=== PATIENT | male | born 1990 | race Caucasian/White ===

== ENCOUNTER 2017-12-31 20:02 | Inpatient (IN) | payer MEDICAID, OTHER ==
[2017-12-31] MEDS ORDERED: NS 0.9% 1000 ML* 1,000 ML IV ONE (21:20)
[2017-12-31 21:45] LABS: ABS Basophils 0 10^3/ul (0-0.2); ABS Eosinophils 0.1 10^3/ul (0-0.6); ABS Lymphocytes 1.3 10^3/ul (1.0-4.8); ABS Monocytes 0.5 10^3/ul (0-0.8); ABS Neutrophils 1.3 10^3/ul (1.5-7.7); ABS Nucleated RBC 0 10^3/ul; Eosinophil % 4.3 % (0-6); Hematocrit 43 % (42-52); Hemoglobin 15.3 g/dl (14.0-18.0); Lymphocyte % 41.1 % (25-47); Mean Corpuscular HGB Conc 36 g/dl (31-36); Mean Corpuscular Hemoglobin 31 pg (27-31); Mean Corpuscular Volume 85 fL (80-94); Mean Platelet Volume 9.2 um3 (7.4-10.4); Nucleated Red Blood Cells % 0; Platelet Count 161 10^3/ul (150-450); Red Blood Count 4.98 10^6/ul (4.0-5.4); Red Cell Distribution Width 13 % (10.5-15); White Blood Count 3.3 10^3/ul (3.5-10.8)
[2017-12-31 21:52] LABS: INR 0.98 (0.77-1.02)
--- NOTE | 2017-12-31 21:53 | RAD ---
INDICATION: Seizure COMPARISON: None TECHNIQUE: An AP portable view obtained at 2133 hours is submitted. FINDINGS: Bones/Soft Tissues: There are no acute bony findings. Cardiomediastinal: The cardiomediastinal silhouette is normal. Lungs: There are no infiltrates. Pleura: There are no pleural effusions. Other: None IMPRESSION: NORMAL CHEST.
[2017-12-31 21:56] LABS: EGFR Non-African American 97.8 (>60)
[2017-12-31 22:15] LABS: Urine Appearance Clear; Urine Blood Negative (Negative); Urine Color Yellow; Urine Ketones Negative (Negative); Urine Protein Negative (Negative); Urine Specific Gravity 1.031 (1.010-1.030); Urine Urobilinogen Negative (Negative)
[2017-12-31] MEDS ORDERED: NS 0.9% 1000 ML* 2,000 ML IV ONE (22:53)
[2017-12-31] MEDS ORDERED: Potassium Chlor TAB* 20 MEQ TAB.ER PO ONE (22:53)
[2017-12-31] MEDS ORDERED: Acetaminophen TAB* 325 MG PO PRN (23:20)
[2017-12-31] MEDS ORDERED: Ondansetron INJ* 2 MG/ML VIAL IV PRN (23:20)
--- NOTE | 2018-01-01 01:06 | ED ---
Alex Fitzpatrick Tecjoon scribbhanu for Larry Chauhan MD on 12/31/17 at 2125 . Dizziness - HPI Summary HPI Summary: This patient is a 27 year old male BIBA to [facility] accompanied by friends with a chief complaint of weakness since approx. 2 hours ago. Patient states that he was driving down the road, when vision went blurry, couldnt move arms, couldn t talk. Patient states that he pulled his car over the side of the road and called EMS. The pain is rated 0/10 in severity. Symptoms aggravated by nothing. Symptoms alleviated by nothing. The patient treated the sx with nothing [employer]PA[employer]. Patient additionally reports myalgia. Patient denies fever. Symptoms are resolved at time of arrival, with no slurred speech, facial droop, or weakness. - History Of Current Complaint Chief Complaint: EDWeakness Stated Complaint: ?TIA Time Seen by Provider: 12/31/17 21:03 Hx Obtained From: Patient Onset/Duration: Resolved Timing: Intermittent Episode Lasting Severity Currently: None Character: Weak Aggravating Factor(s): Nothing Alleviating Factor(s): Nothing Associated Signs And Symptoms: Positive: Negative - slurred speech, fever, facial droop,, Other: - myalgia, blurred vision - Allergies/Home Medications Allergies/Adverse Reactions: Allergies Allergy/AdvReac Type Severity Reaction Status Date / Time amoxicillin Allergy Swelling Verified 12/31/17 20:19 Penicillins Allergy Swelling Verified 12/31/17 20:19 Home Medications: Home Medications Omeprazole CAP* [Prilosec CAP* 20 MG] 40 mg PO DAILY 12/31/17 [History Confirmed 12/31/17] PMH/Surg Hx/FS Hx/Imm Hx Previously Healthy: Yes Endocrine/Hematology History: Denies: Hx Diabetes, Hx Thyroid Disease Cardiovascular History: Denies: Hx Hypertension, Hx Pacemaker/ICD Respiratory History: Denies: Hx Asthma, Hx Chronic Obstructive Pulmonary Disease (COPD) GI History: Denies: Hx Ulcer Sensory History: Denies: Hx Hearing Aid Psychiatric History: Denies: Hx Panic Disorder - Surgical History Surgery Procedure, Year, and Place: wisdom Infectious Disease History: No Infectious Disease History: Denies: Hx Hepatitis, Hx Human Immunodeficiency Virus (HIV), Traveled Outside the [place] in Last 30 Days - Family History Known Family History: Positive: Hypertension - Social History Occupation: Employed Full-time Lives: With Family Alcohol Use: None Hx Substance Use: No Substance Use Type: Reports: None Hx Tobacco Use: No Smoking Status (MU): Never Smoked Tobacco Review of Systems Negative: Fever Positive: Blurred Vision Positive: Myalgia Neurological: Negative - facial droop Positive: Weakness. Negative: Slurred Speech All Other Systems Reviewed And Are Negative: Yes Physical Exam - Summary Physical Exam Summary: VITAL SIGNS: Reviewed. GENERAL: Patient is a well-developed and nourished male who is lying comfortable in the stretcher. Patient is not in any acute respiratory distress. HEAD AND FACE: No signs of trauma. No ecchymosis, hematomas or skull depressions. No sinus tenderness. EYES: PERRLA, EOMI x 2, No injected conjunctiva, no nystagmus. EARS: Hearing grossly intact. Ear canals and tympanic membranes are within normal limits. MOUTH: Oropharynx within normal limits. NECK: Supple, trachea is midline, no adenopathy, no JVD, no carotid bruit, no c- spine tenderness, neck with full ROM. CHEST: Symmetric, no tenderness at palpation LUNGS: Clear to auscultation bilaterally. No wheezing or crackles. CVS: Regular rate and rhythm, S1 and S2 present, no murmurs or gallops appreciated. ABDOMEN: Soft, non-tender. No signs of distention. No rebound no guarding, and no masses palpated. Bowel sounds are normal. EXTREMITIES: FROM in all major joints, no edema, no cyanosis or clubbing. NEURO: Alert and oriented x 3. No acute neurological deficits. Speech is normal and follows commands. SKIN: Dry and warm Triage Information Reviewed: Yes Vital Signs On Initial Exam: Initial Vitals Temp Pulse Resp BP Pulse Ox 99.4 F 86 16 143/87 98 12/31/17 20:13 12/31/17 20:13 12/31/17 20:13 12/31/17 20:13 12/31/17 20:13 Vital Signs Reviewed: Yes Diagnostics - Vital Signs Vital Signs Temp Pulse Resp BP Pulse Ox 12/31/17 21:20 99.2 F 12/31/17 21:00 78 15 128/82 98 12/31/17 20:58 15 12/31/17 20:57 136/86 12/31/17 20:13 99.4 F 86 16 143/87 98 - Laboratory Result Diagrams: 12/31/17 21:28 12/31/17 20:39 Lab Statement: Any lab studies that have been ordered have been reviewed, and results considered in the medical decision making process. - Radiology CXR Xray Interpretation: No Acute Changes - CXR reveals, per radiologist, IMPRESSION : NORMAL CHEST. ED physician has reviewed this radiology report. Radiology Interpretation Completed By: Radiologist - CT CT Head CT Interpretation: No Acute Changes - CT Head reveals, per radiologist, IMPRESSION: Normal brain, No acute intracranial abnormality. ED physician has reviewed this radiology report CT Interpretation Completed By: Radiologist - EKG 2137 Cardiac Rate: NL EKG Rhythm: Sinus Rhythm - 74 BPM EKG Interpretation: Normal axis, normal interval, no ischemic changes. Dizzy Course/Dx - Course Course Of Treatment: This patient is a 27 year old male BIBA to [facility] accompanied by friends with a chief complaint of weakness since approx. 2 hours ago. Patient states that he was driving down the road, when vision went blurry, couldnt move arms, couldnt talk. Patient states that he pulled his car over the side of the road and called EMS. An EKG, taken 2137, reveals NSR (74 BPM), Normal axis, normal interval, no ischemic changes. CXR reveals, per radiologist , IMPRESSION: NORMAL CHEST. ED physician has reviewed this radiology report. CT Head reveals, per radiologist, IMPRESSION: Normal brain, No acute intracranial abnormality. ED physician has reviewed this radiology report. Bloodwork Obtained. Urinalysis Obtained. Test results with no significant abnormalities. In the ED course the patient was given Potassium Chloride. We discussed patient care with Nurse Practitioner and they agreed to admit the patient. Patient will be admitted with a dx of weakness. Patient is advised to follow up with PCP in 3 days. The patient is agreeable with this plan. - Diagnoses Provider Diagnoses: Weakness - Provider Notifications Discussed Care Of Patient With: Vlad Johnson - Nurse Practitioner Time Discussed With Above Provider: 23:15 - We discussed patient care with Nurse Practitioner and they agreed to admit the patient. Instructed by Provider To: Admit As Inpatient Discharge - Sign-Out/Discharge Documenting (check all that apply): Discharge - admitted - Discharge Plan Condition: Stable Disposition: ADMITTED TO [facility] Referrals: Khadar Dawkins MD [Primary Care Provider] - The documentation as recorded by the Alex lindsay Tecjoon accurately reflects the service I personally performed and the decisions made by me, Larry Chauhan MD.
--- NOTE | 2018-01-01 02:17 | HP ---
CC: Dr. Dawkins; Dr. Kilgore * HISTORY AND PHYSICAL: DATE OF ADMISSION: 12/31/17 PRIMARY CARE PROVIDER: Dr. Dawkins. ATTENDING PHYSICIAN WHILE IN THE HOSPITAL: Manuel Jim MD * (report dictated by Vlad Johnson NP) CHIEF COMPLAINT: Altered mental status. HISTORY OF PRESENT ILLNESS: Mr. Evans is a 27-year-old male patient. He was previously healthy. He comes in to our ER today. He says that basically since Wednesday, he has been having intermittent periods of just feeling run down, fatigued, aching all over, just muscles aching, joints aching. His says that he has been feeling warm at night. He noticed particularly at night that he feels kind of run down and weak. He says he just has not been really acting himself over the last week in the sense that he has been feeling just fatigued generally. He has been having days like Wednesday when he woke up, he was feeling kind of off he says, he is kind of vague in his descriptions. He took Aleve that made him feel better again, but then on Wednesday morning, he felt off again, took Aleve again. he felt off again, took Aleve. Everyday in the morning, he was just feeling fatigued with the exception of today, so he woke up, he finally had a good day, he felt well, he felt rested, he went to work, he had been going to work throughout the week and feeling well in the evenings, but just at nighttime feeling really run down, fatigued, kind of hot he said, but no diaphoresis, vomiting or diarrhea. He denied any URI symptoms. No rhinorrhea, no sore throat, no congestion. He denied having any abdominal pain. He basically was getting in his car to go home from work and he just felt like he was stuck in mud, he was moving real slow, he said he had trouble moving both of his arms. He said he felt profoundly weak, he tried grabbing his cell phone, he tried to call his father who called 911 because he was concerned, he was trying to get words out and trying to speak and he just felt like he could not say what he wanted to say. He pressed the panic button on his phone. 911 was summoned. He was able to finally summon his father and talk to him and his father says that when he was on the phone, his speech sounded pressured, rushed, he sounded like he was panicking. When EMS got there , he still felt weak in the upper extremities, he was still having trouble with his speech according to the patient. There was no facial drooping, no focal weakness at one side. He denied having any weakness to his lower extremities. There was concern when he got here by Dr. Chauhan because of the patient's report and we were asked to evaluate. The patient denied having any numbness around his face, no facial drooping. He did say that his vision got blurred, but he did not faint and there was no incontinence of urine or stool. He was evaluated in the ED and because of his altered mental status, we were asked to evaluate for admission. PAST MEDICAL HISTORY: He has had prepatellar bursitis on his right knee. PAST SURGICAL HISTORY: Denies with the exception of wisdom teeth. HOME MEDICATIONS: Include 40 mg daily. ALLERGIES TO MEDICATIONS: Include PENICILLIN. FAMILY HISTORY: His mother has high blood pressure, high cholesterol. Father had a history of stroke, Afib. SOCIAL HISTORY: He does not smoke, he does not drink. He denies recreational drugs. He owns his own business. He has 2 children. His surrogate decision maker is his . REVIEW OF SYSTEMS: There is no documented fever. He denies having any significant weight change. There is no double vision. He denies having any ear discharge. He denies having any rhinorrhea. He does admit to a sore throat tonight. There is no thyroid enlargement. No chest pain, no orthopnea or nocturnal dyspnea. He denies having any abdominal pain. There has been no nausea, vomiting, no dysuria, no frequency. No seizure. No loss of consciousness, no pruritus and no skin ulcerations. Review of 14 systems was completed, all others negative. PHYSICAL EXAMINATION GENERAL: At this time, Mr. Evans is a 27-year-old male patient, who is sitting in the ED stretcher. He appears to be well nourished and well developed. VITAL SIGNS: Blood pressure 117/77, pulse 76, respirations 16, O2 sat 96%, temperature 98.7. HEENT: Atraumatic, normocephalic. Eyes, EOMs intact. Sclerae anicteric and not pale. NECK: Supple. Throat: Oral mucosa appears to be moist. No oropharyngeal erythema. HEART: Sounds S1, S2. Regular rate and rhythm. No murmurs, rubs or gallops. LUNGS: Clear to auscultation bilaterally. No wheezes, rales, or rhonchi. ABDOMEN: Soft, flat, nontender. Bowel sounds were present. EXTREMITIES: Pulses were 2+ throughout, moving all 4 extremities with 5/5 strength. NEUROLOGIC: The patient is awake, he is alert, he is oriented x3. Finger to nose intact bilaterally. Heel to crawford intact bilaterally. Body Trimmer were equal. Tongue is midline. He had 5/5 strength. He speech appeared to be clear to me. Cranial nerves II through XII were intact. No gross focal deficits. SKIN: Grossly intact. LABORATORY DATA/DIAGNOSTIC STUDIES: WBC was 3.3, RBC 4.90, hemoglobin 15.3, hematocrit 43, platelet count of 161,000. INR 0.98, PTT 31.0. Blood gas: Carbon monoxide was negative. Sodium 139, potassium 3.9, chloride 104, bicarb 29, BUN 15, creatinine 1.94, glucose 109, lactic 1.3, calcium 9.0, total bili 0.4, mag 2.2. His AST was 20, ALT 26, alkaline phosphatase 68, CK 83, BNP of 7. TSH normal, albumin 4.1. Urine showed a high specific gravity of 1.031. Toxicology negative. Serology negative for mono and for flu. Brain CT, which the impression was read by our [facility] group showed a normal CT brain. Chest x-ray showed a normal chest x- ray. EKG obtained today showed normal sinus rhythm, rate of 74, no ST elevation or T wave inversions. Old medical records were reviewed. ASSESSMENT AND PLAN: Mr. Evans is a 27-year-old male patient coming in to the ED today with complaints of altered mental status. We were asked to evaluate for admission. He will be admitted under observation status for: 1. Altered mental status, etiology of this is unclear. The concern is possible panic attack; however, concerning with the word finding problems, I did touch base with Dr. Kilgore of Neurology. He will be evaluating the patient tomorrow. His symptoms are completely resolved now. I do get concerned with the leukopenia and the monocytosis. His mono screen was negative. I did send off an EBV. I am going to repeat the labs for leukopenia tomorrow, could have an underlying viral infection. There is no report of headache, photophobia or neck stiffness and on exam he certainly had no meningeal signs. possibly this could be encephalitis, although he is clear now, his mentation is better, arguing against this. I think observation state is appropriate. Will hydrate the patient. Repeat labs in the morning, have Neurology evaluate. I do not think we need any further imaging just at this point but unless Dr. Kilgore evaluates and feels that he will need further imaging, I will defer further recommendations, but we will monitor him. Should his symptoms evolve overnight or become worse, we will get in touch with Dr. Kilgore for more urgent evaluation. 2. DVT prophylaxis. He will be placed on SCDs. 3. Fluids, electrolytes and nutrition. I am replacing his potassium with p.o. potassium tonight. We will go ahead and put him on a regular diet. Continue to follow. 4. DVT prophylaxis. SCDs have been ordered. 5. Code status. Full code. TIME SPENT: Time spent on the admission was 60 minutes, greater than half the time was spent [id number] with the patient obtaining my history and physical, other half of the time was spent going over the plan of care with the patient and implementing the plan of care. I did discuss the plan of care with my attending, Dr. Jim; he is in agreement. VLAD JOHNSON, PATRIZIA [id number]/CPS #: [id number] DA
[2018-01-01 05:33] LABS: Hematocrit 38 % (42-52); Hemoglobin 13.5 g/dl (14.0-18.0); Mean Corpuscular HGB Conc 36 g/dl (31-36); Mean Corpuscular Hemoglobin 31 pg (27-31); Mean Corpuscular Volume 85 fL (80-94); Mean Platelet Volume 8.9 um3 (7.4-10.4); Platelet Count 139 10^3/ul (150-450); Red Blood Count 4.43 10^6/ul (4.0-5.4); Red Cell Distribution Width 13 % (10.5-15); White Blood Count 3.5 10^3/ul (3.5-10.8)
[2018-01-01 05:38] LABS: INR 0.98 (0.77-1.02)
[2018-01-01 05:49] LABS: EGFR Non-African American 100.2 (>60)
[2018-01-01 06:18] LABS: ABS Basophils 0 10^3/ul (0-0.2); ABS Eosinophils 0.2 10^3/ul (0-0.6); ABS Lymphocytes 1.7 10^3/ul (1.0-4.8); ABS Monocytes 0.5 10^3/ul (0-0.8); ABS Nucleated RBC 0 10^3/ul; Eosinophil % 5.6 % (0-6); Lymphocyte % 50.2 % (25-47); Nucleated Red Blood Cells % 0.2
[2018-01-01] MEDS: Omeprazole CAP* 20 MG PO SCH (07:02)
--- NOTE | 2018-01-01 07:03 | RAD ---
INDICATION: Confusion. COMPARISON: There are no prior studies available for comparison. TECHNIQUE: Contiguous axial sections of the brain were obtained from the skull base to the vertex without contrast. FINDINGS: The ventricles, cisterns and sulci are within normal limits. No significant focal abnormality or mass effect is seen. There is no evidence for hemorrhage. No significant focal osseous abnormality is seen. The visualized portion of the paranasal sinuses and mastoid air cells appear clear. IMPRESSION: NO EVIDENCE FOR ACUTE INTRACRANIAL ABNORMALITY.
--- NOTE | 2018-01-01 09:31 | PN ---
Subjective Date of Service: 01/01/18 Interval History: Ramon reports feeling better today. He denies any dizziness, blurred vision, headaches, chest pain or palpitations. Has been ambulatory, denies dizziness upon standing or walking. Feels perked up after IVF last night. Tolerating diet , trying to increase PO fluid intake. He has no complaints today. Neurological consult planned for this morning. Family History: Unchanged from Admission Social History: Unchanged from Admission Past Medical History: Unchanged from Admission Objective Active Medications: Acetaminophen (Tylenol Tab*) 650 mg PO Q4H PRN PRN Reason: FEVER/PAIN Omeprazole (Prilosec Cap*) 40 mg PO DAILY@0730 ADA Last Admin: 01/01/18 07:02 Dose: 40 mg Ondansetron HCl (Zofran Inj*) 4 mg IV Q6H PRN PRN Reason: NAUSEA Vital Signs - 8 hr 01/01/18 01/01/18 01/01/18 01:40 02:47 04:53 Temperature 97.4 F 97.8 F Pulse Rate 82 80 Respiratory 16 16 Rate Blood Pressure 113/72 94/53 (mmHg) O2 Sat by Pulse 99 99 98 Oximetry 01/01/18 01/01/18 07:49 08:00 Temperature 97.9 F Pulse Rate 75 Respiratory 12 12 Rate Blood Pressure 109/56 (mmHg) O2 Sat by Pulse 97 Oximetry Oxygen Devices in Use Now: None Appearance: Appears healthy and well-developed. Sitting up in his bed, eating breakfast, appears comfortable and in NAD. Eyes: No Scleral Icterus, PERRLA Ears/Nose/Mouth/Throat: Clear Oropharnyx, Mucous Membranes Moist Neck: NL Appearance and Movements; NL JVP, Trachea Midline, No Thyroid Enlargement, Masses Respiratory: Symmetrical Chest Expansion and Respiratory Effort, Clear to Auscultation Cardiovascular: NL Sounds; No Murmurs; No JVD, RRR Abdominal: NL Sounds; No Tenderness; No Distention, No Hepatosplenomegaly Lymphatic: No Cervical Adenopathy Extremities: No Edema Skin: No Rash or Ulcers Neurological: Alert and Oriented x 3, NL Muscle Strength and Tone Nutrition: Taking PO's Result Diagrams: 01/01/18 05:20 01/01/18 05:20 Diagnostic Imaging: Patient Name: RAMON KIRKLAND Medical Record#: [id number] Ordering Physician: Larry Chauhan MD Acct.#: [id number] : 1990 Age: 27 Sex: M Location: [address] [place] [address] MEDICAL/TELEMETRY Exam Date: 12/31/172122 ADM Status: ADM Bk Order Information: CT BRAIN WO Accession Number: [id number] CPT: 91785 INDICATION: Confusion. IMPRESSION: NO EVIDENCE FOR ACUTE INTRACRANIAL ABNORMALITY. Patient Name: RAMON KIRKLAND Medical Record#: [id number] Ordering Physician: Larry Chauhan MD Acct.#: [id number] : 1990 Age: 27 Sex: M Location: EMERGENCY DEPARTMENT Exam Date: 12/31/172120 ADM Status: REG ER Order Information: CHEST AP PORTABLE Accession Number: [id number] CPT: 91230 INDICATION: Seizure IMPRESSION: NORMAL CHEST. Assess/Plan/Problems-Billing Assessment: A 27 y/o male with admitted with altered mental status that has resolved since presentation, hx fatigue and malaise past few days with some URI symptoms, likely related to viral illness and dehydration. Had negative work-up, awaiting neurological consult today. - Patient Problems (1) Altered mental status, unspecified Current Visit: Yes Status: Acute Comment: Unclear etiology, likely panic attack, but can't r/o neurological cause. Discussed with Dr. Kilgore, who saw patient today for consultation. Patient experienced some sensory hyperstimulation on the left side during neurological exam, no motor deficits. Recommended a brain MRI W/WO contrast, as well as an EEG Patient was informed, has to stay inpatient until Wednesday for testing and close observation in Tele. (2) Viral illness Current Visit: Yes Comment: Experienced since last week, mostly upper respiratory congestion, resolving with symptomatic care. (3) Hypokalemia Current Visit: Yes Comment: Resolved with K supplement (4) GERD (gastroesophageal reflux disease) Current Visit: Yes Comment: Continue PPI (5) DVT prophylaxis Current Visit: Yes Status: Acute Code(s): EVS0129 - SNOMED Code(s): 801236093 Comment: SCD (6) Full code status Current Visit: Yes Status: Acute Code(s): Z78.9 - OTHER SPECIFIED HEALTH STATUS SNOMED Code(s): 409479494 Comment: He is a full code Status and Disposition: Convert to inpatient status since MRI can't be done over weekend. Discussed with patient and his family, who agreed.
--- NOTE | 2018-01-01 16:16 | CONS ---
CC: Dr. Khadar Dawkins. NEUROLOGY CONSULTATION REPORT: DATE OF CONSULT: 01/01/18 REQUESTING CLINICIAN: Vlad Johnson NP REASON FOR CONSULT: An episode of blurriness of vision and slowness in movements HISTORY OF PRESENT ILLNESS: The patient is a 27-year-old right-handed male who was in the usual state of health until yesterday when he went to car and started driving for a while when he suddenly felt unwell, and his vision became blurry. He became anxious, tried to pullover and was not sure what was happening to him. When he was trying to reach his pocket to grab his phone, he felt that he is not able to use his arms very well, like his motions were slow and had a hard time moving and that feeling escalated his anxiety. Eventually, he was able to call 911. When the ambulance came, he was on the phone with his father. His father states that the patient's speech sounded fine on the phone and there was no slurred speech or word finding problems that he noted, but he just seemed very anxious and even at some point crying because he was not sure what was going on. There was no report of lateralizing weakness of numbness. He denies any other associated symptoms such as no diplopia, no difficulty with the speech as mentioned, no particular localized weakness or numbness in the arm and legs or difficulty walking. Eventually, as the patient was coming to the hospital by the ambulance he gradually felt better and by the time he was evaluated in the hospital, he was almost back to his baseline. He reports in the past week starting from Wednesday he did not feel very well in the morning, some vague symptoms, so he had taken An Aleve on Wednesday and Wednesday morning. He was fine on Wednesday until evening when he had to take another Aleve because he was not feeling very well and he was again fine until this episode happened on Wednesday. The patient had not had any similar previous episodes in the past. No history of head trauma, encephalitis, meningitis or seizures in the past. PAST MEDICAL HISTORY: 1. He has history of patellar bursitis in the right knee 2. History of migraine type headaches when he was a child. Now he gets headaches frequently, they are not as severe mostly in the bifrontal head region and can be associated with photophobia. PAST SURGICAL HISTORY: Not significant other than extraction of the wisdom teeth. MEDICATIONS: He takes omeprazole 40 mg p.o. daily. FAMILY HISTORY: His father had a history of stroke, it seems like it was related to an ASD, which was repaired. Paternal aunt had history of seizure probably started in the age 30s, manifesting as staring episodes. Per patient' s father, patient's aunt subsequently was on antiepileptic medications and her seizures were controlled and then sounds like she committed suicide later in life. There is history of migraine in maternal grandmother. SOCIAL HISTORY: The patient does not smoke or drink. He does not use recreational drug. 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 REVIEW OF SYSTEMS: A complete review of system was reviewed and other than what mentioned above is negative. PHYSICAL EXAM: Temperature 97.9, blood pressure 109/56, respiratory rate 12, pulse is 75, O2 sat 97 on room air. Patient seems comfortable, in no acute distress, appears his stated age. Heart has regular rate and rhythm. Abdomen is soft and nontender. Pulses equal in both arms and legs. Neurological Exam: The patient is awake, alert and oriented x3. Able to do serial 7's very fast. Pupils are symmetric and reactive to light. Extraocular movements are intact. On funduscopy, the optic discs are sharp with no papilledema observed. Visual rodriguez are intact by confrontation. Face is symmetric. V1 to V3 he reports increased sensation to light touch and pinprick especially in the V1 area and less so in the V2 on the left side. V3 seems equal bilaterally. Tongue is in midline. Palate elevates upward. On motor exam, there is no pronator drift. Strength is 5/5 throughout. Rapid alternative movements are intact and finger-to -nose is intact bilaterally. On sensory exam, there is report of increased sensation to light touch, pinprick and temperature on the left side in the arms and legs. There is also report of sensing the vibration with tuning fork on the left side at least for 15 to 20 seconds after discontinuation of the vibration. Proprioception is intact bilaterally. Finger to nose and heel-to- crawford is intact bilaterally. JOHN intact bilaterally, but slightly slower in the left hand compared to the right (he is right handed)t. Deep tendon reflexes are 1+ in the knees and the ankles and are symmetric and the same in the upper extremities. The Babinski seems equivocal on the right and probably is mildly present (upgoing) on the left side. DIAGNOSTIC STUDIES/LAB DATA: CT of the head without contrast shows no evidence of intracranial abnormalities. On the labs, WBC was 3.3 when he presented to the hospital lat night and is 3.5 today. The diff shows 27.6% neutrophils today, 50.2% lymphocytes and 15.7% monocytes. Platelets are 139. Sodium 139, potassium 3.7 chloride 107, anion gap is 5, BUN 14, creatinine 0.92, glucose 108, calcium 8, magnesium 2.2, AST 20 , ALT 26. INR is 0.98. U-tox is negative. Screen for infectious mononucleosis is negative. ASSESSMENT AND PLAN: The patient is a 27-year-old male with no significant past medical history other than headaches presents with an episode of sudden onset of blurred vision, difficulty with performing tasks such as using his hands. He does not seem to have significant impaired consciousness or confusion during the episode. However, what is concerning on the exam now is report of hyperesthesia on the left side: he reports increased sensation to the all modalities sensory exam on the next side including V1 and V2 on the left side. He is not sure if his right side is normal or the left side; however, this can be interpreted as decrease of sensation on the right side with the exception of the vibration that he reports ongoing vibration on the left side of the body about 15-20 seconds after the tuning forks has stopped and on repeated exam this is a consistent finding. Now if the right side sensory exam be considered abnormal, then putting the present Babinski sign on the left side can be confusing in terms of localization. He has a questionable Babinski on the left side as well. Another confusing part of this case is that the lateralizing findings on the exam do not quite fit the non-lateralizing report of yesterday' s episode. With the above findings, it is important to rule out a lesion in the GLASS SCIENCE ENGINEER the cortical area close to the sensorymotor cortex in the right hemisphere with an MRI with or without contrast. Anther finding in the patient's labs that does not have a good explanation is increased monocytes diff with a relative leukopenia in his CBC; his WBC was 3.3 yesterday, but improved to 3.5 today; diff still shows increased monocytes. Another differential in etiology of patient's episode yesterday was a complex partial seizure, although there was no clear impaired consciousness. Would be reasonable to obtain an EEG as well. The above were discussed with the patient and his family present at the bedside (, and parents). Time spent at beside at least 60 minutes. [id number]/[facility] #: [id number] DA
[2018-01-02] MEDS: Omeprazole CAP* 20 MG PO SCH (07:37)
--- NOTE | 2018-01-02 08:05 | PN ---
Subjective Date of Service: 01/02/18 Interval History: Patient was seen and examined at bedside. Reports feeling well, denies any complaints. Has been walking, eating and using the bathroom. Denies dizziness, headaches, seizures, chest pain or SOB. Slept well last night, would like to go home as soon as possible. Family History: Unchanged from Admission Social History: Unchanged from Admission Past Medical History: Unchanged from Admission Objective Active Medications: Acetaminophen (Tylenol Tab*) 650 mg PO Q4H PRN PRN Reason: FEVER/PAIN Omeprazole (Prilosec Cap*) 40 mg PO DAILY@0730 [facility] Last Admin: 01/02/18 07:37 Dose: 40 mg Ondansetron HCl (Zofran Inj*) 4 mg IV Q6H PRN PRN Reason: NAUSEA Vital Signs - 8 hr 01/02/18 01/02/18 01/02/18 03:37 04:18 07:39 Temperature 97.6 F 97.5 F Pulse Rate 61 66 Respiratory 16 16 Rate Blood Pressure 111/55 105/63 (mmHg) O2 Sat by Pulse 98 97 99 Oximetry 01/02/18 07:56 Temperature Pulse Rate Respiratory 16 Rate Blood Pressure (mmHg) O2 Sat by Pulse Oximetry Oxygen Devices in Use Now: None Appearance: Appears healthy and well developed, laying on his bed, comfortable and in NAD. Ears/Nose/Mouth/Throat: Mucous Membranes Moist Neck: NL Appearance and Movements; NL JVP, Trachea Midline Respiratory: Symmetrical Chest Expansion and Respiratory Effort, Clear to Auscultation Cardiovascular: NL Sounds; No Murmurs; No JVD, RRR Abdominal: NL Sounds; No Tenderness; No Distention, No Hepatosplenomegaly Lymphatic: No Cervical Adenopathy Extremities: No Edema Skin: No Rash or Ulcers Neurological: Alert and Oriented x 3, NL Muscle Strength and Tone Nutrition: Taking PO's Result Diagrams: 01/01/18 05:20 01/01/18 05:20 Assess/Plan/Problems-Billing Assessment: A 27 y/o male with admitted with altered mental status that has resolved since presentation, hx fatigue and malaise past few days with some URI symptoms, likely related to viral illness and dehydration. Had negative work-up. Neurological consult suggested abnormal sensory exam, awaiting MRI and EEG. - Patient Problems (1) Altered mental status, unspecified Current Visit: Yes Comment: Unclear etiology, likely panic attack, but can't r /o neurological cause. Discussed with Dr. Kilgore, who saw patient today for consultation. Patient experienced some sensory hyperstimulation on the left side during neurological exam, no motor deficits. Recommended a brain MRI W/WO contrast, as well as an EEG Patient was informed, has to stay inpatient until Wednesday for testing and close observation in Tele. (2) Viral illness Current Visit: Yes Comment: Experienced since last week, mostly upper respiratory congestion, resolving with symptomatic care. (3) Hypokalemia Current Visit: Yes Comment: Resolved with K supplement (4) GERD (gastroesophageal reflux disease) Current Visit: Yes Comment: Continue PPI (5) DVT prophylaxis Current Visit: Yes Status: Acute Code(s): SVV4035 - SNOMED Code(s): 773475417 Comment: SCD, ambulate (6) Full code status Current Visit: Yes Status: Acute Code(s): Z78.9 - OTHER SPECIFIED HEALTH STATUS SNOMED Code(s): 085490619 Comment: He is a full code Status and Disposition: Ramon is clinically stable with no further neurological complaints since presentation. Await findings of MRI and EEG to determine d/c plans.
[2018-01-02] MEDS ORDERED: Gadoteridol* (CONTRAST) 279.3 MG/ML 10 ML IV ONE (14:35)
[2018-01-02] MEDS ORDERED: Gadoteridol* (CONTRAST) 279.3 MG/ML 10 ML IV SCH (15:00)
--- NOTE | 2018-01-02 20:43 | RAD ---
INDICATION: 2 days earlier the patient experienced blurred vision and "lost ability to talk and ability to control arms" that lasted 30 minutes COMPARISON: Noncontrast CT of the brain dated December 31, 2017 TECHNIQUE: Sagittal T1, axial T1, T2, susceptibility, FLAIR and diffusion-weighted images were obtained. In addition, axial, sagittal and coronal T1-weighted images were obtained following intravenous injection of 20 mL of ProHance contrast. FINDINGS: The ventricles, cisterns and sulci appear to be within normal limits. The left cerebellum there is an obliquely oriented faintly T2 bright focus measuring 1.5 cm in length (series 8 image 12) that corresponds to increased signal on the diffusion-weighted imaging. This is not seen on the T1-weighted imaging and does not exhibit any abnormal enhancement on the postcontrast images. Otherwise the bundy-white matter differentiation is well-maintained. There are no suspicious foci enhancing or otherwise. No other significant focal abnormality or mass effect is seen. No areas of restricted diffusion are present. There is no evidence for infarct or hemorrhage. There is an inspissated secretion in the lateral aspect of the left maxillary sinus. IMPRESSION: 1. The left cerebellum there is a nonspecific T2 bright focus measuring 1.5 cm in length that is not seen on the T1-weighted imaging and does not exhibit any contrast enhancement. A benign etiology is favored. 2. Otherwise no acute intracranial abnormality, enhancing or otherwise.
--- NOTE | 2018-01-03 07:59 | PN ---
Subjective Date of Service: 01/03/18 Interval History: Doing better over the weekend. No further episodes. He denies any general aches or pains. Headaches are better. No seizure like activity. No neck stiffness, no N/V. Eating well. Ambulating well. Denies h/o seizures, maternal aunt with seizures, no h/o head trauma, no h/o meningitis, no complications. Continues to feel more sensation on the left vs. right. MRI Brain: Left cerebellar hyperintensity, likely benign. I reviewed the films. Otherwise , no acute issues. Family History: Unchanged from Admission Social History: Unchanged from Admission Past Medical History: Unchanged from Admission Objective Active Medications: Acetaminophen (Tylenol Tab*) 650 mg PO Q4H PRN PRN Reason: FEVER/PAIN Gadoteridol (Prohance* (Contrast)) 20 ml IV ONCE [facility] Stop: 01/04/18 14:34 Omeprazole (Prilosec Cap*) 40 mg PO DAILY@0730 [facility] Last Admin: 01/02/18 07:37 Dose: 40 mg Ondansetron HCl (Zofran Inj*) 4 mg IV Q6H PRN PRN Reason: NAUSEA Vital Signs 01/02/18 01/02/18 01/02/18 07:56 11:13 15:20 Temperature 97.2 F 98.3 F Pulse Rate 66 73 Respiratory 16 16 16 Rate Blood Pressure 122/68 119/65 (mmHg) O2 Sat by Pulse 98 98 Oximetry 01/02/18 01/02/18 01/02/18 19:23 20:00 23:12 Temperature 97.9 F 98.6 F Pulse Rate 69 62 Respiratory 20 20 20 Rate Blood Pressure 124/64 116/60 (mmHg) O2 Sat by Pulse 98 98 Oximetry 01/03/18 03:53 Temperature 98.8 F Pulse Rate 73 Respiratory 20 Rate Blood Pressure 124/69 (mmHg) O2 Sat by Pulse 98 Oximetry Oxygen Devices in Use Now: None Neurology Exam: General: Awake, Alert, Oriented x3 HEENT: Normocephalic/atraumatic, sclera anicteric, mucous membranes moist Neck: Supple Chest: Clear to auscultation bilaterally Cardiovascular: Regular rate and rhythm without murmurs, rubs, gallops Abdomen: Soft, nontender/nondistended Extremities: No clubbing, cyanosis, or edema Neurological Findings: Awake, Alert, Oriented x3 Speech: fluent without dysarthria, repetition intact Cranial Nerve: PEERL, EOM intact, VFF, no nystagmus, face symmetric bilaterally , facial sensation intact, hearing intact to finger rub bilaterally, palate elevates symmetrically, tongue midline, SCM and Trapezius 5/5 Motor: 5/5 throughout, proximal and distal extremities x4 tone/bulk normal Sensation: intact to LT/PP bilaterally upper and lower extremities with some hyperesthesia on the left to LT/PP arm and leg, unchanged per patient Deep Tendon Reflex: 1+ symmetric in the upper/lower extremities, Babinski - equivocal Finger to nose, rapid alternating movements intact without tremor, no dysdiadochokinesia Gait: intact with good arm swing and stride. no sway with eyes open/closed Result Diagrams: 01/01/18 05:20 01/01/18 05:20 Diagnostic Imaging: Patient Name: SERA KIRKLAND Medical Record#: [id number] Ordering Physician: Larry Chauhan MD Acct.#: [id number] : 1990 Age: 27 Sex: M Location: [address] [place] [address]/[facility]LEMET[place] Exam Date: 12/31/172122 ADM Status: ADM Bk Order Information: CT BRAIN WO Accession Number: [id number] CPT: 12904 INDICATION: Confusion. IMPRESSION: NO EVIDENCE FOR ACUTE INTRACRANIAL ABNORMALITY. Patient Name: SERA KIRKLAND Medical Record#: [id number] Ordering Physician: Larry Chauhan MD Acct.#: [id number] : 1990 Age: 27 Sex: M Location: EMERGENCY DEPARTMENT Exam Date: 12/31/172120 ADM Status: REG ER Order Information: CHEST AP PORTABLE Accession Number: [id number] CPT: 69279 INDICATION: Seizure IMPRESSION: NORMAL CHEST. Assessment/Plan Assessment: 27 y/o with a history of headaches, recent malaise, fatigue, diffuse aches last week. Wednesday had an episode of possible confusion but difficulty speaking and moving. Resolved and none since then. Feeling better. Unclear sensory changes : hyperesthesia on the left vs. sensory loss on the right. MRI: No acute issues. Cerebellar hyperintensity would not explain his symptoms , likely benign and chronic. 1. EEG today. Suspicion for seizures is low but as I explained to the patient , there are only certain things that could present like he did and seizures could cause similar symptoms, although my suspicion is low. 2. MRI: hyperintensity is likely chronic, benign. Would not explain symptoms. No strong evidence of MS. 3. No strong evidence for an encephalitis or meningitis: at this point LP would be low yield. He is clinically much better 4. Leukopenia resolved. Mild thrombocytopenia. Supports diagnosis of underlying viral infection. His symptoms could be explained, at least in part by viral illness. 5. Anxiety, questionable panic attack, diagnosis of exclusion 6. Has had episodes of low blood pressure which could, in the right setting, cause transient symptoms. Unlikely metabolic in nature. No evidence of hypoglycemia. 7. Continue to monitor. If his studies are negative, now that he is feeling better, he will likely go home later today. Will need follow up with me in 1 month. We can repeat MRI in 6-12 months assuming no new symptoms.
[2018-01-03] MEDS: Omeprazole CAP* 20 MG PO SCH (08:22)
--- NOTE | 2018-01-03 08:41 | PN ---
Subjective Date of Service: 01/03/18 Interval History: Mr. Evans reports that he is doing well and is eager for discharge. Family History: Unchanged from Admission Social History: Unchanged from Admission Past Medical History: Unchanged from Admission Objective Active Medications: Acetaminophen (Tylenol Tab*) 650 mg PO Q4H PRN Gadoteridol (Prohance* (Contrast)) 20 ml IV ONCE [facility] Omeprazole (Prilosec Cap*) 40 mg PO DAILY@0730 [facility] Ondansetron HCl (Zofran Inj*) 4 mg IV Q6H PRN Vital Signs: Temp Pulse Resp BP Pulse Ox 98.8 F 73 20 124/69 98 01/03/18 03:53 01/03/18 03:53 01/03/18 03:53 01/03/18 03:53 01/03/18 08:03 Oxygen Devices in Use Now: None Appearance: Male sitting up in bed in NAD Eyes: No Scleral Icterus Ears/Nose/Mouth/Throat: Mucous Membranes Moist Neck: Trachea Midline Respiratory: Symmetrical Chest Expansion and Respiratory Effort, Clear to Auscultation Cardiovascular: NL Sounds; No Murmurs; No JVD, No Edema Abdominal: NL Sounds; No Tenderness; No Distention Lymphatic: No Cervical Adenopathy Extremities: No Edema Skin: No Rash or Ulcers Neurological: Alert and Oriented x 3, NL Muscle Strength and Tone Nutrition: Taking PO's Result Diagrams: 01/01/18 05:20 01/01/18 05:20 Assess/Plan/Problems-Billing Assessment: Mr. Evans is a 27 y/o with a history of headaches, recent malaise, fatigue, diffuse aches last week. Wednesday had an episode of possible confusion but difficulty speaking and moving. Resolved and none since then. Feeling better. Unclear sensory changes: hyperesthesia on the left vs. sensory loss on the right. - Patient Problems (1) Altered mental status, unspecified Comment: Unclear etiology, likely viral illness compounded by anxiety. Discussed with Dr. Garibay, plan for outpatient follow up. MRI findings felt to be incidental. EEG negative. (2) Viral illness Comment: Experienced since last week, mostly upper respiratory congestion, resolving with symptomatic care. (3) DVT prophylaxis Comment: SCD, ambulate (4) Full code status Comment: He is a full code Status and Disposition: Discharge to home.
[2018-01-03 12:38] VITALS: BP 116/74
--- NOTE | 2018-01-04 00:49 | EEG ---
ELECTROENCEPHALOGRAPHY: DATE OF STUDY: 01/03/18 - ROOM #[id number] PATIENT OF: Dr. Rivera and . * CLINICAL PROBLEM: This is a 27-year-old man being evaluated for slowness of movement and blurriness while driving. This study was done to evaluate for possible seizures. MEDICATIONS: Include: 1. Acetaminophen. 2. Omeprazole. 3. Ondansetron. REPORT: With the patient awake, background cerebral activity consists of moderate amplitude posterior dominant 8 Hz rhythm, which attenuates with eye opening and reappears with eye closure. The patient never falls asleep. No activation procedures were performed. No epileptiform potentials, focal abnormalities or major asymmetries of background are noted. CLINICAL IMPRESSION: This awake EEG is within normal limits. [id number]/[facility] #: [id number] [facility]
--- NOTE | 2018-01-04 03:16 | DS ---
CC: Dr. Dawkins * DISCHARGE SUMMARY: DATE OF ADMISSION: 12/31/17 DATE OF DISCHARGE: 01/03/18 ATTENDING PHYSICIAN: Herrera Hung MD * (dictation provided by Yolanda Nagel NP) PRIMARY DIAGNOSES: 1. Episode of confusion, slurred speech, and bilateral upper extremity weakness. 2. Recent viral illness. SECONDARY DIAGNOSES: None. MEDICATIONS AT THE TIME OF DISCHARGE: Omeprazole 20 mg p.o. daily. HOSPITAL COURSE: Mr. Evans is a 27-year-old male with no significant past medical history who presented to the emergency room on 12/31/17 with concern for confusion, slurred speech, and difficulty moving his upper extremities. Please see the dictated H and P from Vlad Johnson NP, for complete details. In brief, the patient had reported that since the Wednesday prior to admission, he had been having intermittent periods of fatigue and achiness with possible fever. This seemed to resolve on the day of admission when he then developed trouble moving his upper extremities bilaterally and difficulty speaking. In the emergency room, the patient had labs, which showed mild leukopenia at 3.3 and a mild hypokalemia also 3.3. He had no evidence of infection. Normal chest x-ray and urinalysis. CT brain showed "no evidence for acute intracranial abnormality." Mr. Evans was seen in consultation by Dr. Kilgore from Neurology on 01/01/18. I refer you to that note for complete details. In brief, he noted he recommended an MRI to rule out a VOICE PATHOLOGIST lesion. Mr. Evans went on for an MRI of the brain on 01/02/18, which showed the following: "In the left cerebellum, there is a nonspecific T2 bright focus measuring 1.5 cm in length that is not seen on a T1 weighted imaging and does not exhibit any contrast enhancement, a benign etiology is favored, otherwise no acute intracranial abnormality enhancing or otherwise." The patient was seen again today in consultation by Dr. Garibay from Neurology. He reviewed the MRI and felt that this was likely an incidental finding and that the patient's symptoms were not concerning for multiple sclerosis. He did recommend, however, that the patient have an EEG to rule out a seizure, which was completed today and was normal. Mr. Evans's symptoms have completely resolved. Dr. Garibay suspects that perhaps this was all related to a viral illness and possibly compounded by anxiety. The plan is for him to follow up closely with Dr. Garibay in the outpatient setting. The patient will be calling for an appointment. DISPOSITION: To home. DIET: Regular. ACTIVITY: As tolerated. FOLLOWUP PLANS: 1. Please follow up with Dr. Garibay as outpatient in the next 4 to 6 weeks. 2. Please follow up with Dr. Dawkins in the next 1 to 2 weeks. TIME SPENT: Approximately 60 minutes were spent in discharge of this patient, more than half the time was spent with the patient at the bedside reviewing the events leading up to this hospitalization and during this hospitalization, performing the physical examination, and reviewing my plan of care. YOLANDA NAGEL NP [id number]/[facility] #: [id number] DA
== END 2018-01-03 14:17 | disposition home or self-care (01) | DRG 880 ==
LOC: ED 20:02 → MEDTELE 23:08 → OBSVTOIN 01-01 15:30
PROVIDERS: ADMIT Internal Medicine; ATTEND Internal Medicine
PROC: 4A10X4Z Monitoring of Central Nervous Electrical Activity, External Approach (ICD-10-PCS; principal; 2018-01-03)
DX: F41.9 Anxiety disorder, unspecified (principal); B34.9 Viral infection, unspecified; D72.819 Decreased white blood cell count, unspecified; E87.6 Hypokalemia; K21.9 Gastro-esophageal reflux disease without esophagitis; D69.6 Thrombocytopenia, unspecified; I95.9 Hypotension, unspecified; E86.0 Dehydration; Z88.0 Allergy status to penicillin; Z82.3 Family history of stroke; Z82.49 Family history of ischemic heart disease and other diseases of the circulatory system; Z83.49 Family history of other endocrine, nutritional and metabolic diseases; Z88.1 Allergy status to other antibiotic agents; Z86.69 Personal history of other diseases of the nervous system and sense organs
CPT/HCPCS: 36415; 70450; 70553; 71045; 80048; 80053; 80307; 81003; 82375; 82550; 83605; 83735; 83880; 84443; 85025; 85610; 85730; 86308; 86664; 86665; 87502; 93005; 94760; 95816; 99284; A9270-GY; A9579

== ENCOUNTER 2018-05-30 18:10 | Emergency (ER) | payer OTHER ==
[2018-05-30 18:25] VITALS: BP 104/47
[2018-05-30] MEDS ORDERED: Ondansetron INJ* 2 MG/ML VIAL IV ONE (18:34)
[2018-05-30] MEDS ORDERED: NS 0.9% 1000 ML* 1,000 ML BOLUS ONE (18:34)
--- NOTE | 2018-05-30 18:40 | UC ---
Abdominal Pain Male HPI - HPI Summary HPI Summary: The patient is a 28-year-old male who returned from a trip to [place] on . Before his return he started having diarrhea. Since his return he has had 3-5 episodes of diarrhea day as well as crampy abdominal pain. For the past 3 days she has had fever and chills. He is also had a headache. Today he started developing some nausea and has had some vomiting. He has lost over 10 pounds since his trip. - History of Current Complaint Chief Complaint: UCGI Stated Complaint: ABDOMINAL COMPLAINT Time Seen by Provider: 05/30/18 18:27 Hx Obtained From: Patient Onset/Duration: Gradual Onset, Lasting Days Timing: Constant Severity Initially: Mild Severity Currently: Moderate Pain Intensity: 6 Pain Scale Used: 0-10 Numeric Location: Diffuse Character: Cramping Alleviating Factor(s): Nothing Associated Signs And Symptoms: Positive: Fever, Decreased Appetite, Nausea, Vomiting, Diarrhea - Allergies/Home Medications Allergies/Adverse Reactions: Allergies Allergy/AdvReac Type Severity Reaction Status Date / Time amoxicillin Allergy Swelling Verified 05/30/18 18:25 Penicillins Allergy Swelling Verified 05/30/18 18:25 Home Medications: Home Medications Ibuprofen TAB* [Advil TAB*] 400 mg PO PRN 05/30/18 [History] PMH/Surg Hx/FS Hx/Imm Hx Previously Healthy: Yes - Surgical History Surgical History: Yes Surgery Procedure, Year, and Place: wisdom teeth - Family History Known Family History: Positive: Hypertension - Social History Alcohol Use: None Substance Use Type: None Smoking Status (MU): Never Smoked Tobacco - Immunization History Most Recent Influenza Vaccination: 2013 Most Recent Tetanus Shot: unknown Most Recent Pneumonia Vaccination: n/a Review of Systems Constitutional: Fever, Chills Skin: Negative Eyes: Negative ENT: Negative Respiratory: Negative Cardiovascular: Negative Gastrointestinal: Abdominal Pain, Vomiting, Diarrhea, Nausea Genitourinary: Negative Motor: Negative Neurovascular: Negative Musculoskeletal: Negative Neurological: Headache Psychological: Negative Is Patient Immunocompromised?: No All Other Systems Reviewed And Are Negative: Yes Physical Exam Triage Information Reviewed: Yes Appearance: Well-Appearing, No Pain Distress, Well-Nourished Vital Signs: Initial Vital Signs Temp 101.5 F 05/30/18 18:20 Pulse 117 05/30/18 18:20 Resp 16 09/03/18 18:20 BP 104/47 05/30/18 18:20 Pulse Ox 100 05/30/18 18:20 Vital Signs Reviewed: Yes Eyes: Positive: Conjunctiva Clear ENT: Positive: Hearing grossly normal. Negative: Nasal congestion, Nasal drainage, Tonsillar swelling, Tonsillar exudate, Muffled voice, Dental tenderness, Sinus tenderness Dental: Negative: Dental Fracture @, Abscess @ Neck: Positive: Supple, Nontender Respiratory: Positive: Lungs clear, Normal breath sounds, No respiratory distress, No accessory muscle use Cardiovascular: Positive: RRR, No Murmur, Tachycardia Abdomen Description: Negative: Nontender - diffuse mild tenderness Bowel Sounds: Positive: Present Musculoskeletal: Positive: ROM Intact, No Edema Neurological Exam: Normal Psychological Exam: Normal Skin Exam: Normal Diagnostics - Laboratory Diagnostic Studies Completed/Ordered: influenza (-) Re-Evaluation - Re-Evaluation First Eval Re-Evaluation Time: 19:21 Change: Improved - much better/abd not tender Abd Pain Male Course/Dx - Differential Dx/Clinical Impression Provider Diagnoses: traveler's diarrhea Discharge - Sign-Out/Discharge Documenting (check all that apply): Patient Departure All imaging exams completed and their final reports reviewed: No Studies - Discharge Plan Condition: Stable Disposition: HOME Patient Education Materials: Traveler's Diarrhea (ED) Referrals: Khadar Dawkins MD [Primary Care Provider] - 4 Days (if not better) Additional Instructions: obtain stool specimen start cipro once stool obtained - Billing Disposition and Condition Condition: STABLE Disposition: Home
[2018-05-30] MEDS ORDERED: Ondansetron ODT TAB* 4 MG PO ONE (19:25)
[2018-05-30] MEDS ORDERED: Acetaminophen TAB* 325 MG PO ONE (19:41)
== END 2018-05-30 20:10 | disposition home or self-care (01) ==
LOC: UCEAST 18:10
DX: R19.7 Diarrhea, unspecified (principal); Z88.0 Allergy status to penicillin
CPT/HCPCS: 87045; 87046; 87177; 87209; 87328; 87329; 87899; 96360; 96372; 96374; 99212; A9270-GY; G0463; J2405

== ENCOUNTER 2019-03-06 20:54 | Emergency (ER) | payer SELFPAY ==
[2019-03-06 21:13] VITALS: BP 111/68
[2019-03-06] MEDS ORDERED: Sulfamethox/Trimethoprim DS 800/160* TAB PO ONE (21:49)
--- NOTE | 2019-03-06 21:54 | UC ---
Skin Complaint HPI - History of Current Complaint Chief Complaint: UCSkin Time Seen by Provider: 03/06/19 21:36 Stated Complaint: LT LEG SKIN COMPLAINT Hx Obtained From: Patient Pain Intensity: 3 - Allergy/Home Medications Allergies/Adverse Reactions: Allergies Allergy/AdvReac Type Severity Reaction Status Date / Time amoxicillin Allergy Swelling Verified 03/06/19 21:05 Penicillins Allergy Swelling Verified 03/06/19 21:05 PMH/Surg Hx/FS Hx/Imm Hx - Surgical History Surgical History: Yes Surgery Procedure, Year, and Place: wisdom teeth - Family History Known Family History: Positive: Hypertension - Social History Alcohol Use: None Substance Use Type: None Smoking Status (MU): Never Smoked Tobacco - Immunization History Most Recent Influenza Vaccination: 2013 Most Recent Tetanus Shot: unknown Most Recent Pneumonia Vaccination: n/a Physical Exam Vital Signs: Initial Vital Signs Temp 98.6 F 03/06/19 21:06 Pulse 85 03/06/19 21:06 Resp 18 03/06/19 21:06 BP 111/68 03/06/19 21:06 Pulse Ox 98 03/06/19 21:06 Course/Dx - Differential Diagnoses - Skin Complaint Differential Diagnoses: Abscess, Cellulitis, Local Allergic Reaction, MRSA, Urticaria - Diagnoses Provider Diagnosis: Cellulitis of left lower leg Discharge - Sign-Out/Discharge Documenting (check all that apply): Patient Departure - D/C home All imaging exams completed and their final reports reviewed: No Studies - Discharge Plan Condition: Stable Disposition: HOME Prescriptions: Sulfamethox/Trimethoprim DS* [Bactrim DS 800/160 TAB*] 1 tab PO BID #19 tab Patient Education Materials: Cellulitis (ED) Referrals: Khadar Dawkins MD [Primary Care Provider] - 2 Days Additional Instructions: 1-Please take Bactrim PO as directed full course of Antibiotic. first dose given tonight. Take yogurt w/ probiotics or Culturelle PO to protect your GI system. 2- If redness and swelling doubles in size beyond what was demarcated after 48 hrs of taking antibiotic and fever develops please go to the ER immediately. 3-Avoid standing for long periods of time or flexing your foot, keep it elevated and keep wound clean and dry. Apply Bacitrain oint as directed 4-Please F/u with your PCP in 3 days if symptoms are not improving for further evaluation and treatment. - Billing Disposition and Condition Condition: STABLE Disposition: Home
== END 2019-03-06 22:02 | disposition home or self-care (01) ==
LOC: UCCORT 20:54
DX: L03.116 Cellulitis of left lower limb (principal); Z88.0 Allergy status to penicillin
CPT/HCPCS: 99212; A9270-GY; G0463

== ENCOUNTER 2020-01-18 13:34 | Emergency (ER) | payer SELFPAY ==
--- NOTE | 2020-01-18 13:43 | UC ---
Lower Extremity/Ankle HPI - HPI Summary HPI Summary: 30 yo male presents with foot injury. He tells me that just BACK HAND he was walking in his house in [place] and stepped on a screw that penetrated his sole and punctured the web spacing of his 1st and 2nd toes. Bandaged the area and came directly to . States last tetanus was within the last 2-3 years. States screw was removed in one intact piece - History of Current Complaint Stated Complaint: FOOT INJURY Time Seen by Provider: 01/18/20 13:43 Hx Obtained From: Patient Onset/Duration: Sudden Onset Severity Initially: Moderate Severity Currently: Moderate Pain Intensity: 5 Pain Scale Used: 0-10 Numeric Able to Bear Weight: Yes - Allergies/Home Medications Allergies/Adverse Reactions: Allergies Allergy/AdvReac Type Severity Reaction Status Date / Time amoxicillin Allergy Swelling Verified 01/18/20 13:45 Penicillins Allergy Swelling Verified 01/18/20 13:45 Home Medications: Home Medications Omeprazole CAP (NF) [Prilosec CAP* 20 MG] 40 mg PO DAILY 12/31/17 [History Confirmed 01/18/20] Acetaminophen [Acetaminophen Extra Strength] 1 tab PO ONCE PRN 01/18/20 [ History Confirmed 01/18/20] clindamycin HCL [Clindamycin HCl] 300 mg PO TID #21 capsule 01/18/20 [Rx] PMH/Surg Hx/FS Hx/Imm Hx - Additional Past Medical History Additional PMH: Esophagitis - Surgical History Surgical History: Yes Surgery Procedure, Year, and Place: wisdom teeth - Family History Known Family History: Positive: Hypertension - Social History Lives: With Family Alcohol Use: None Substance Use Type: None Smoking Status (MU): Never Smoked Tobacco - Immunization History Most Recent Influenza Vaccination: 2013 Most Recent Tetanus Shot: unknown Most Recent Pneumonia Vaccination: n/a Review of Systems All Other Systems Reviewed And Are Negative: No Constitutional: Positive: Negative Skin: Positive: Other - Stepped on screw Respiratory: Positive: Negative Cardiovascular: Positive: Negative Neurological/Mental Status: Positive: Negative Psychological: Positive: Negative Physical Exam - Summary Physical Exam Summary: GENERAL: NAD. WDWN. No pain distress. SKIN: LEFT FOOT: web spacing 1st and 2nd digit there is a 3mm puncture wound with mild active bleeding. Clean appearing. No retained piece CHEST: No accessory muscle use. Breathing comfortably and in no distress. CV: Pulses intact. Cap refill <2seconds MSK: FROM all toes left foot NEURO: Alert. PSYCH: Age appropriate behavior. Triage Information Reviewed: Yes Vital Signs: Vital Signs: Temp Pulse Resp BP Pulse Ox 98.9 F 89 18 145/84 97 01/18/20 13:42 01/18/20 13:42 01/18/20 13:42 01/18/20 13:42 01/18/20 13:42 Vital Signs Reviewed: Yes Lower Extremity Course/Dx - Course Course Of Treatment: Puncture wound irrigated and soaked in saline and hibiclens. Puncture wound bandaged with telfa and kerlix. Will place him on clindamycin for prophylactic infection. (No keflex as he has hives and "swelling" with PCN. No fluoro as he is very active and dose a lot of heavy lifting - high risk tendon rupture). - Differential Dx/Diagnosis Provider Diagnosis: Puncture wound of foot Discharge ED - Sign-Out/Discharge Documenting (check all that apply): Patient Departure All imaging exams completed and their final reports reviewed: No Studies - Discharge Plan Condition: Stable Disposition: HOME Prescriptions: clindamycin HCL [Clindamycin HCl] 300 mg PO TID #21 capsule Patient Education Materials: Puncture Wound in the Foot (ED) Referrals: Khadar Dawkins MD [Primary Care Provider] - Additional Instructions: If you develop a fever, shortness of breath, chest pain, new or worsening symptoms - please call your PCP or go to the ED immediately. Change the bandaged daily. I recommend that you stay off your feet as much as possible for 2-3 days to allow area to heal. If you notice increased pain, redness, drainage -- please be rechecked immediately. - Billing Disposition and Condition Condition: STABLE Disposition: Home
[2020-01-18 13:53] VITALS: BP 145/84
== END 2020-01-18 14:25 | disposition home or self-care (01) ==
LOC: UCEAST 13:34
DX: S91.332A Puncture wound without foreign body, left foot, initial encounter (principal); W26.8XXA Contact with other sharp object(s), not elsewhere classified, initial encounter; Y92.009 Unspecified place in unspecified non-institutional (private) residence as the place of occurrence of the external cause; Z88.0 Allergy status to penicillin
CPT/HCPCS: 99212; G0463